=== PATIENT | male | born 1995 | race Caucasian/White ===

== ENCOUNTER 2017-01-15 19:54 | Inpatient (IN) | payer OTHER ==
[~2017-01-15] VITALS: Ht 157.5 cm; Wt 81.1 kg
[2017-01-15 20:24] LABS: HEMATOCRIT 41.5 % (38.0-50.0); MCH 29.2 PG (29.0-34.0); MCHC 33.7 G/DL (30.0-36.0); MCV 86.6 FL (86-99); MEAN PLAT.VOLUME 9.6 uM^3 (9.0-12.4); PLATELET COUNT 376 K/uL (156-360); RBC DIS.WIDTH-CV 12.7 % (11.8-14.6); RED BLOOD COUNT 4.79 M/uL (4.00-5.50); WHITE BLOOD COUNT 23.3 K/uL (4.1-10.2)
[2017-01-15 20:35] LABS: CHLORIDE 106 mEq/L (99-109); POTASSIUM 4.1 mEq/L (3.7-5.4); SODIUM 139 mEq/L (136-147)
[2017-01-15 20:37] LABS: GLUCOSE 98 mg/dL (70-99)
[2017-01-15 20:38] LABS: ANION GAP 12 MEQ/L (2-14)
[2017-01-15 20:40] LABS: SERUM ETHYL ALCOHOL < 10 mg/dL
[2017-01-15 20:42] LABS: GFR ESTIMATE (CALCULATED) > 59 mL/min/; UREA NITROGEN (BUN) 12 mg/dL (9-23)
[2017-01-15 20:54] LABS: AMPHETAMINE NEGATIVE (500 ng/mL); BARBITURATES NEGATIVE (200 ng/mL); BENZODIAZEPINES NEGATIVE (150 ng/mL); COCAINE NEGATIVE (150 ng/mL); INTERNAL CONTROLS VALID? YES; METHADONE NEGATIVE (200 ng/mL); METHAMPHETAMINE NEGATIVE (500 ng/mL); OPIATES (MORPHINE) NEGATIVE (100 ng/mL); OXYCODONE NEGATIVE (100 ng/mL); PHENCYCLIDINE NEGATIVE (25 ng/mL); PROPOXYPHENE NEGATIVE (300 ng/mL); THC CANNABINOIDS NEGATIVE (50 ng/mL); TRICYCLIC ANTIDEPRESSANTS NEGATIVE (300 ng/mL)
[2017-01-15 22:56] LABS: HEMATOCRIT 39.4 % (38.0-50.0); MCH 29.5 PG (29.0-34.0); MCV 86.8 FL (86-99); MEAN PLAT.VOLUME 9.6 uM^3 (9.0-12.4); PLATELET COUNT 367 K/uL (156-360); RBC DIS.WIDTH-CV 12.7 % (11.8-14.6); RBC DIS.WIDTH-SD 39.9 % (39-53); RED BLOOD COUNT 4.54 M/uL (4.00-5.50); WHITE BLOOD COUNT 20.1 K/uL (4.1-10.2)
[2017-01-16 02:35] VITALS: BP 126/66
[2017-01-16 02:52] VITALS: BP 126/66
[2017-01-16 07:32] VITALS: BP 109/55
[2017-01-16 15:40] VITALS: BP 122/58
[2017-01-17 07:37] VITALS: BP 144/65
[2017-01-17 15:10] VITALS: BP 127/60
[2017-01-18 07:31] VITALS: BP 127/62
[2017-01-18 16:21] VITALS: BP 122/60
[2017-01-19 07:49] VITALS: BP 111/61
[2017-01-19] MEDS ORDERED: ESCITALOPRAM OX10 MG PO (09:23)
== END 2017-01-19 14:35 | disposition home or self-care (01) | DRG 885 ==
LOC: EME 19:54 → EDOF 01-16 01:29 → 1WEST 01-16 01:29
PROVIDERS: Emergency Medicine
DX: F33.2 Major depressive disorder, recurrent severe without psychotic features (principal); R45.851 Suicidal ideations; Z91.010 Allergy to peanuts; Z91.09 Other allergy status, other than to drugs and biological substances; F64.9 Gender identity disorder, unspecified; Z91.5 Personal history of self-harm
CPT/HCPCS: 80048; 85027; 90837; 97150 GO; 97165 GO; 99281; 99285; G0480